=== PATIENT | female | born 1970 | race Caucasian/White ===

== ENCOUNTER 2018-01-31 08:21 | Emergency (ER) | payer SELFPAY ==
[2018-01-31] MEDS ORDERED: LIDOCAINE 1% INJ-PF (10 MG/ML) 30 ML SDV INJ ONE (08:35)
[2018-01-31] MEDS ORDERED: SULFAMETHOXAZOLE/TRIMETHOPRIM 800-160 MG TABLET PO ONE (08:37)
--- NOTE | 2018-01-31 08:41 | ER Document Report ---
ED General - General Mode of Arrival: Ambulatory Information source: Patient TRAVEL OUTSIDE OF THE [place] IN LAST 30 DAYS: No - General Chief Complaint: Abscess Stated Complaint: POSSIBLE ABCESS Time Seen by Provider: 01/31/18 08:30 Notes: Patient is a 47 year old female with a history of abscesses (I&D) presents to the emergency department complaining of an area of redness and swelling just above the left ankle. Patient states she initially thought she received a spider bite but the symptoms have worsened over time. She states she has soaked the area in epsom salt and placed an antibiotic ointment in attempt to resolve the symptoms. (MAIDA BARTLETT) - Related Data Allergies/Adverse Reactions: Penicillins Allergy (Verified 01/01/16 18:18) Past Medical History - General Information source: Patient - Social History Smoking Status: Never Smoker Cigarette use (# per day): No Chew tobacco use (# tins/day): No Smoking Education Provided: No Frequency of alcohol use: None Drug Abuse: None Family History: Reviewed & Not Pertinent Past Surgical History: Reports: Hx Section - x2 Review of Systems - Review of Systems Constitutional: No symptoms reported EENT: No symptoms reported Cardiovascular: No symptoms reported Respiratory: No symptoms reported Gastrointestinal: No symptoms reported Female Genitourinary: No symptoms reported Musculoskeletal: See HPI Skin: See HPI Hematologic/Lymphatic: No symptoms reported Neurological/Psychological: No symptoms reported Physical Exam - Vital signs Vitals: Temp Pulse Resp BP Pulse Ox 98.2 F 101 H 18 144/75 H 98 01/31/18 08:23 01/31/18 08:23 01/31/18 08:23 01/31/18 08:23 01/31/18 08:23 - Notes Notes: GENERAL: Alert, interacts well. No acute distress. HEAD: Normocephalic, atraumatic. EYES: Pupils equal, round, and reactive to light. Extraocular movements intact. ENT: Oral mucosa moist, tongue midline. NECK: Full range of motion. Supple. Trachea midline. LUNGS: Clear to auscultation bilaterally, no wheezes, rales, or rhonchi. No respiratory distress. HEART: Regular rate and rhythm. No murmurs, gallops, or rubs. EXTREMITIES: Moves all 4 extremities spontaneously. No edema, radial and dorsalis pedis pulses 2/4 bilaterally. No cyanosis. NEUROLOGICAL: Alert and oriented x3. Normal speech. PSYCH: Normal affect, normal mood. SKIN: Warm, dry. Left lower leg, just above the ankle contains an area of erythema and swelling which is firm to touch. Consistent with an abscess. (MAIDA BARTLETT) Course - Re-evaluation Re-evalutation: 01/31/18 09:15 PROCEDURE: The left anterior distal leg skin was prepped with Shur-Clens. The infected region was anesthetized with 4 mls 1% lidocaine local. A transverse incision was made over the most prominent part of the abscess and pus and necrotic fat was released. A culture of that material was taken. The area was probed with mosquitoes and internally debrided of the necrotic fat. The wound cavity was irrigated with 20 mls normal saline Wound cavity was packed with quarter-inch gauze. A sterile dressing was applied with Coban to hold the gauze in place. (NAHUN AKINS) - Vital Signs Vital signs: Temp Pulse Resp BP Pulse Ox 97.9 F 98 16 145/65 H 98 01/31/18 09:44 01/31/18 09:44 01/31/18 09:44 01/31/18 09:44 01/31/18 09:44 Discharge - Discharge Clinical Impression: Abscess of left leg Condition: Stable Disposition: HOME, SELF-CARE Additional Instructions: Abscess You have an abscess (boil). This a pus-forming infection, usually due to staph. Some boils may be left to drain on their own, but most require lancing. From the time the tender lump first appears, it may be three or four days before the abscess is ready to dorie. Local heat and rest help at this stage of treatment. An antibiotic may prevent spread of the infection. Once the abscess is opened, packing may be placed into it. This is done so pus is not sealed inside by premature closure of the cavity. The packing will be removed at your follow-up visit or you may be advised to remove it yourself at home. Sometimes this packing must be replaced a few times during healing. The wound will heal with surprisingly little scar. Depending on the size and location of an abscess, healing can take one to four weeks. You may shower and wash the area around the incision site two or three times a day. Antibiotics may be prescribed, but are usually not necessary after an abscess has been drained. If you develop fever, chilling, worsening pain, or increasing swelling in the area, call the doctor or return immediately. Elevate your leg above the heart is much as possible. Limit walking for the next 2 days. Take the antibiotics as prescribed. Keep the wound dressing intact. Remove the dressing and remove the gauze packing in 2 days. After the gauze packing has been removed, probed the wound with a Q-tip dipped in peroxide, do this several times daily to keep the wound open for as long as possible to allow the wound to heal from the inside out. RETURN TO THE EMERGENCY ROOM IF ANY NEW OR WORSENING SYMPTOMS. Prescriptions: Hydrocodone/Acetaminophen [Clinton 5-325 mg Tablet] 1 tab PO Q4 PRN #12 tablet PRN Reason: Sulfamethoxazole/Trimethoprim [Septra-Ds 800-160 mg Tablet] 2 tab PO BID #28 tablet Forms: Return to Work Scribe Attestation: 01/31/18 08:53 I personally performed the services described in the documentation, reviewed and edited the documentation which was dictated to the scribe in my presence, and it accurately records my words and actions. (CRISTOFER AKINS) Scribe Documentation - Scribe Written by Ashlee:: Ashlee Jack, 01/31/2018 08:44 acting as scribe for :: Meron
[2018-01-31 09:45] VITALS: BP 145/65
== END 2018-01-31 09:46 | disposition home or self-care (01) ==
LOC: ER 08:21
PROC: 0H9LXZZ Drainage of Left Lower Leg Skin, External Approach (ICD-10-PCS; principal; 2018-01-31)
DX: L02.416 Cutaneous abscess of left lower limb (principal); Z88.0 Allergy status to penicillin
CPT/HCPCS: 10060; 99283; 87070; 87075; 87077; 87186; A6266; J3490